=== PATIENT | female | born 1975 | race American Indian/Alaskan Native ===

== ENCOUNTER 2017-03-10 19:54 | Emergency (ER) | payer BC ==
[2017-03-10 20:10] VITALS: BP 135/73; RESP 17; TEMP 98.6; O2SAT 98
--- NOTE | 2017-03-10 20:31 | ED PDOC ---
Lower Extremity Pain/Injury Time Seen by Provider: 03/10/17 20:15 Chief Complaint (Nursing): Lower Extremity Problem/Injury Chief Complaint (Provider): leg pain History Per: Patient History/Exam Limitations: no limitations Onset/Duration Of Symptoms: Days (3) Current Symptoms Are (Timing): Still Present Additional History Per: Patient Additional Complaint(s): 41 y/o obese female presents for eval of bilateral leg pain (R>L) x 3 days. Patient states she was sitting down when she noted pain in the back and front of both ankles, worse with weight bearing. She notes last night a "burning" sensation from below her right knee to above her right ankle, which lasted a few minutes then resolved. Denies fever, known trauma, numbness/weakness lower extremities, recent travel. Patient on Depo shot. Past Medical History Reviewed: Historical Data, Nursing Documentation, Vital Signs Vital Signs: Last Vital Signs Temp 98.6 F 03/10/17 20:07 Pulse 100 H 03/10/17 20:07 Resp 17 03/10/17 20:07 BP 135/73 03/10/17 20:07 Pulse Ox 98 03/10/17 20:07 - Medical History PMH: No Chronic Diseases Denies: Asthma, Diabetes - Surgical History Surgical History: No Surg Hx - Family History Family History: States: Unknown Family Hx - Social History Current smoker - smoking cessation education provided: Yes SMOKER/PACKS PER DAY:: 1 Alcohol: Social Drugs: Denies - Home Medications Home Medications: Ambulatory Orders Medication Instructions Recorded Oxycodone HCl/Acetaminophen 1 tab PO Q6 #10 tab 05/24/15 [Percocet 325 mg-5 mg] oxyCODONE/Acetaminophen [Percocet 1 ea PO Q6H PRN #10 tab 10/16/15 5/325 mg Tab] Oseltamivir Phosphate [Tamiflu] 75 mg PO BID #10 capsule 03/12/16 Prednisone 50 mg PO DAILY #2 tablet 03/12/16 Naproxen [Naprosyn] 500 mg PO Q12 PRN #20 tablet 03/10/17 - Allergies Allergies/Adverse Reactions: Allergies Allergy/AdvReac Type Severity Reaction Status Date / Time No Known Allergies Allergy Verified 05/24/15 17:11 Review of Systems ROS Statement: Except As Marked, All Systems Reviewed And Found Negative Musculoskeletal: Positive for: Leg Pain Physical Exam - Reviewed Nursing Documentation Reviewed: Yes Vital Signs Reviewed: Yes - Physical Exam Appears: Positive for: Well, Non-toxic, No Acute Distress Pulses-Dorsalis Pedis (L): 2+ Pulses-Dorsalis Pedis (R): 2+ Pulses-Post. Tibialis (L): 2+ Pulses-Post. Tibialis (R): 2+ Extremity: Positive for: Normal ROM (FROM: tenderness posterior ankle b/l with active extension; tenderness anterior/superior ankle b/l with active flexion. ) , Tenderness (posterior ankle just proximal to calcaneous b/l, anterior/ superior ankle b/l), Capillary Refill, Swelling (mild RLE). Negative for: Calf Tenderness (+ Chloe's b/l), Deformity Neurologic/Psych: Positive for: Alert, Oriented. Negative for: Motor/Sensory Deficits - ECG O2 Sat by Pulse Oximetry: 98 - Other Rad xray ankles X-Ray: Viewed By Me X-Ray Interpretation: no acute findings - Progress ED Course And Treament: xray's, venous duplex b/l LE, ibuprofen PO CLINICAL HISTORY: 41 years old, female; Pain; Leg, lower; Bilateral; Additional info: Leg pain TECHNIQUE: Real-time ultrasound scan of the veins of the bilateral lower extremities with color Doppler flow, spectral waveform analysis and compression. EXAM DATE/TIME: 03/10/2017 8:27 PM COMPARISON: There are no prior studies for comparison. FINDINGS: Right deep veins: Common femoral, superficial femoral, popliteal and posterior tibial veins were evaluated. All veins examined are compressible. There are no intraluminal filling defects. There is expected blood flow on Doppler imaging. There is change in waveform with augmentation. Left deep veins: Common femoral, superficial femoral, popliteal and posterior tibial veins were evaluated. All veins examined are compressible. There are no intraluminal filling defects. There is expected blood flow on Doppler imaging. There is change in waveform with augmentation. IMPRESSION:IMPRESSION: No deep venous thrombosis in the visualized vascular segments of the lower extremities Patient educated on findings, right ankle wrapped in CHANO compression. ADvised RICE. Rx Naproxen given. Follow up podiatry. Return to ED for worsening/concerning symptoms. Disposition - Clinical Impression Clinical Impression: Ankle pain, Tendonitis - Patient ED Disposition Is Patient to be Admitted: No Counseled Patient/Family Regarding: Studies Performed, Diagnosis, Need For Followup, Rx Given - Disposition Referrals: Raul Long DPM [Staff Provider] - Disposition: Routine/Home Disposition Time: 22:38 Condition: IMPROVED Prescriptions: Naproxen [Naprosyn] 500 mg PO Q12 PRN #20 tablet PRN Reason: Pain, Moderate (4-7) Instructions: Achilles Tendinitis (ED), RICE Therapy (ED), Arthralgia (ED)
--- NOTE | 2017-03-10 22:18 | US ---
EXAM: US Duplex Bilateral Lower Extremity Veins CLINICAL HISTORY: 41 years old, female; Pain; Leg, lower; Bilateral; Additional info: Leg pain TECHNIQUE: Real-time ultrasound scan of the veins of the bilateral lower extremities with color Doppler flow, spectral waveform analysis and compression. EXAM DATE/TIME: 03/10/2017 8:27 PM COMPARISON: There are no prior studies for comparison. FINDINGS: Right deep veins: Common femoral, superficial femoral, popliteal and posterior tibial veins were evaluated. All veins examined are compressible. There are no intraluminal filling defects. There is expected blood flow on Doppler imaging. There is change in waveform with augmentation. Left deep veins: Common femoral, superficial femoral, popliteal and posterior tibial veins were evaluated. All veins examined are compressible. There are no intraluminal filling defects. There is expected blood flow on Doppler imaging. There is change in waveform with augmentation. IMPRESSION: No deep venous thrombosis in the visualized vascular segments of the lower extremities
[2017-03-10 22:46] VITALS: PULSE 75
--- NOTE | 2017-03-11 13:55 | RAD ---
PROCEDURE: Bilateral ankles HISTORY: atraumatic ant/post ankle pain COMPARISON: None TECHNIQUE: Standard protocol for this study/examination. FINDINGS: No significant/acute osseous, articular or soft tissue abnormalities. IMPRESSION: No acute findings related to/accounting for the clinical presentation.
== END 2017-03-10 23:09 | disposition home or self-care (01) ==
LOC: H.ER 19:54
DX: M25.571 Pain in right ankle and joints of right foot (principal); M25.572 Pain in left ankle and joints of left foot; M79.604 Pain in right leg; M77.9 Enthesopathy, unspecified

== ENCOUNTER 2018-04-01 09:29 | Emergency (ER) | payer SELFPAY ==
[2018-04-01 09:40] VITALS: BMI 46.5
[2018-04-01 09:42] VITALS: RESP 16; TEMP 98.2
--- NOTE | 2018-04-01 10:16 | RAD ---
HISTORY: LUQ / atraumatic rib pain COMPARISON: Chest radiograph dated 03/12/2016 TECHNIQUE: Chest PA and lateral FINDINGS: LUNGS: No active pulmonary disease. PLEURA: No significant pleural effusion identified. No pneumothorax apparent. CARDIOVASCULAR: Normal. OSSEOUS STRUCTURES: No significant abnormalities. VISUALIZED UPPER ABDOMEN: Normal. OTHER FINDINGS: None. IMPRESSION: No active disease.
--- NOTE | 2018-04-01 10:30 | ED PDOC ---
HPI: Abdomen Time Seen by Provider: 04/01/18 09:52 Chief Complaint (Nursing): Abdominal Pain Chief Complaint (Provider): L rib/ abdominal pain History Per: Patient History/Exam Limitations: no limitations Onset/Duration Of Symptoms: Gradual (about a month) Location Of Pain/Discomfort: LLQ Quality Of Discomfort: Sharp Associated Symptoms: denies: Fever, Chills, Nausea, Vomiting, Diarrhea, Loss Of Appetite, Back Pain, Chest Pain, Constipation, Urinary Symptoms Exacerbating Factors: Upright Position Alleviating Factors: Other (sitting down) Last Bowel Movement: Today Additional Complaint(s): 42yo female c/o left upper abd pain and rib pain, states she fees a "lump" in area when she stands up, but unsure if its just her adipose tissue. Denies cough , SOB, chest pain, dizziness, rash, syncope or trauma/falls. Past Medical History Reviewed: Historical Data, Nursing Documentation, Vital Signs Vital Signs: Last Vital Signs Temp 98.2 F 04/01/18 09:40 Pulse 81 04/01/18 12:30 Resp 16 04/01/18 12:30 BP 135/79 04/01/18 12:30 Pulse Ox 98 04/01/18 12:30 - Medical History PMH: No Chronic Diseases Denies: Asthma, Diabetes - Surgical History Surgical History: No Surg Hx - Family History Family History: States: Unknown Family Hx - Living Arrangements Living Arrangements: With Family - Home Medications Home Medications: Ambulatory Orders Medication Instructions Recorded Ibuprofen [Motrin Tab] 600 mg PO Q6 PRN #15 tab 04/01/18 - Allergies Allergies/Adverse Reactions: Allergies Allergy/AdvReac Type Severity Reaction Status Date / Time No Known Allergies Allergy Verified 05/24/15 17:11 Review of Systems Constitutional: Negative for: Fever, Chills Cardiovascular: Negative for: Chest Pain Respiratory: Negative for: Cough, Shortness of Breath Gastrointestinal: Positive for: Abdominal Pain. Negative for: Nausea Genitourinary Female: Negative for: Dysuria Musculoskeletal: Negative for: Neck Pain, Leg Pain Skin: Negative for: Rash, Lesions Neurological: Negative for: Weakness, Numbness Psych: Negative for: Anxiety Physical Exam - Reviewed Nursing Documentation Reviewed: Yes Vital Signs Reviewed: Yes - Physical Exam Appears: Positive for: Well, Non-toxic, No Acute Distress Head Exam: Positive for: ATRAUMATIC, NORMAL INSPECTION, NORMOCEPHALIC Skin: Positive for: Normal Color, Warm. Negative for: Rash (tattoos to L flank no rash nontender no palpable nodule or mass on seated or standing exam) Eye Exam: Positive for: EOMI, Normal appearance, PERRL ENT: Positive for: Normal ENT Inspection Neck: Positive for: Normal, Painless ROM Cardiovascular/Chest: Positive for: Regular Rate, Rhythm Respiratory: Positive for: CNT, Normal Breath Sounds Gastrointestinal/Abdominal: Positive for: Normal Exam, Soft Back: Positive for: Normal Inspection Extremity: Positive for: Normal ROM. Negative for: Swelling Neurologic/Psych: Positive for: Alert, Oriented. Negative for: Motor/Sensory Deficits - ECG O2 Sat by Pulse Oximetry: 99 Medical Decision Making Medical Decision Making: CXR and US abdomen LUQ ordered r/o splenic abnormality or atypical pneumonia, Pneumothorax, rib lesion or other US and CXR reports reviewed Results explained Needs further testing as outpatient for definitive diagnosis. Disposition - Clinical Impression Clinical Impression: Abdominal pain - Patient ED Disposition Is Patient to be Admitted: No Counseled Patient/Family Regarding: Studies Performed, Diagnosis, Need For Followup, Rx Given - Disposition Disposition: Routine/Home Disposition Time: 12:20 Condition: STABLE Additional Instructions: See your doctor for further testing. Return to ER for any worse or new symptoms. Prescriptions: Ibuprofen [Motrin Tab] 600 mg PO Q6 PRN #15 tab PRN Reason: Pain, Moderate (4-7) Instructions: Acute Abdomen (Belly Pain), Adult (DC) Forms: [employer] (Rwandan)
--- NOTE | 2018-04-01 12:01 | US ---
HISTORY: LUQ pain, L flank; eval spleen and L kidney COMPARISON: None. TECHNIQUE: Sonographic evaluation of the spleen and left kidney. FINDINGS: LEFT KIDNEY: Measures 11.3 x 5.4 x 5.0cm. Normal echogenicity. No calculus, mass, or hydronephrosis. SPLEEN: Normal in size and contour. No mass. OTHER FINDINGS: None. IMPRESSION: Unremarkable ultrasound of the spleen and left kidney.
[2018-04-01 13:02] VITALS: BP 135/79; PULSE 81
[2018-04-02 10:54] VITALS: O2SAT 99
== END 2018-04-01 13:02 | disposition home or self-care (01) ==
LOC: H.ER 09:29
DX: R10.32 Left lower quadrant pain (principal)

== ENCOUNTER 2018-12-13 09:11 | Emergency (ER) | payer BC ==
[2018-12-13 09:12] VITALS: BMI 46.5
[2018-12-13] MEDS ORDERED: Alum-Mag Hydrox-Simethicone Susp (30 mL) PO ONE (10:51)
[2018-12-13] MEDS ORDERED: Alum-Mag Hydrox-Simethicone Susp (30 mL) ONE (11:11)
--- NOTE | 2018-12-13 11:31 | CARD ---
APPROVED REPORT Date of service: 12/13/2018 EKG Measurement Heart [id number] <Conclusion> Normal sinus rhythm Normal ECG
--- NOTE | 2018-12-13 11:31 | ED PDOC ---
HPI: Abdomen Time Seen by Provider: 12/13/18 10:25 Chief Complaint (Nursing): Abdominal Pain History Per: Patient Additional Complaint(s): Pt. states for the past 2 months she's had intermittent LUQ radiating to the epigastric area. Reports pain in the epigastrum has progressively worsened prompting ED visit today. Also states last month she had 1 episode of hardened stool. States she used a suppository and shortly after developed dark stools for 1 day and has since resolved. Last BM was this morning and was normal and brown in color. Has been taking Zantac without relief. Also reports feeling nauseous and has been wretching but not vomitus produced. Denies chest pain, SOB, hematemesis, fever, chills, cough, palpitations, hematochezia, rectal pain. Of note, pt. states 2 weeks ago she had a colonoscopy done which was normal. States she gets a colonscopy regularly as her mother had colon CA at a young age. Pt. does not remember her GI's name. Past Medical History Reviewed: Historical Data, Nursing Documentation, Vital Signs Vital Signs: Last Vital Signs Temp 97.7 F 12/13/18 09:18 Pulse 106 H 12/13/18 09:18 Resp 17 12/13/18 09:18 BP 120/83 12/13/18 09:18 Pulse Ox 99 12/13/18 09:18 - Medical History PMH: Denies: Asthma, Diabetes - Surgical History Surgical History: No Surg Hx - Family History Family History: States: No Known Family Hx - Home Medications Home Medications: Ambulatory Orders Medication Instructions Recorded RX: Ibuprofen [Motrin Tab] 600 mg PO Q6 PRN #15 tab 04/01/18 Famotidine [Pepcid] 40 mg PO DAILY PRN #14 tab 12/13/18 - Allergies Allergies/Adverse Reactions: Allergies Allergy/AdvReac Type Severity Reaction Status Date / Time No Known Allergies Allergy Verified 12/13/18 09:21 Review of Systems ROS Statement: Except As Marked, All Systems Reviewed And Found Negative Gastrointestinal: Positive for: Nausea, Vomiting, Abdominal Pain Physical Exam - Physical Exam Appears: Positive for: Well, Non-toxic, No Acute Distress Skin: Positive for: Normal Color, Warm. Negative for: Rash Eye Exam: Positive for: Normal appearance. Negative for: Scleral icterus Neck: Positive for: Normal, Painless ROM Cardiovascular/Chest: Positive for: Regular Rate, Rhythm Respiratory: Positive for: Normal Breath Sounds. Negative for: Respiratory Distress Gastrointestinal/Abdominal: Positive for: Normal Exam, Bowel Sounds, Soft. Negative for: Tenderness, Distended Back: Positive for: Normal Inspection. Negative for: L CVA Tenderness, R CVA Tenderness Neurologic/Psych: Positive for: Alert, Oriented (x3). Negative for: Aphasia, Facial Droop - Laboratory Results Result Diagrams: 12/13/18 11:06 12/13/18 11:06 - ECG ECG: Positive for: Interpreted By Me ECG Rhythm: Positive for: Sinus Rhythm. Negative for: ST/T Changes Rate: 80 O2 Sat by Pulse Oximetry: 99 - Progress ED Course And Treament: Labs, Pepcid 20mg IV, maalox 30ml PO, viscous lidocaine 15ml PO ordered. 1211 On re-evaluation, pt. reports feeling much better. Pain still present but has improved. WBC 15.2 VBG, CT abd/pelvis w/ IV contrast ordered. 1400 Reports pain has not returned. Currently asymptomatic. Pt. informed of all results. Advised to f/u with PMD or GI for further evaluation but is to return to ED immediately if symptoms worsen. Pt. agrees with plan and care. All questions answered. Disposition - Clinical Impression Clinical Impression: Abdominal pain in female, Dyspepsia - Patient ED Disposition Is Patient to be Admitted: No - Disposition Referrals: [facility] [Outside] Disposition: Routine/Home Disposition Time: 14:08 Condition: IMPROVED Additional Instructions: FOLLOW UP WITH [facility] FOR FURTHER EVALUATION RETURN TO ED IMMEDIATELY IF SYMPTOMS WORSEN TONI [place], thank you for letting us take care of you today. Your provider was Serena Slade MD and you were treated for ABD PAIN. The emergency medical care you received today was directed at your acute symptoms. If you were prescribed any medication, please fill it and take as directed. It may take several days for your symptoms to resolve. Return to the Emergency Department if your symptoms worsen, do not improve, or if you have any other problems. Please contact your doctor or call one of the physicians/clinics you have been referred to that are listed on the Patient Visit Information form that is included in your discharge packet. Bring any paperwork you were given at discharge with you along with any medications you are taking to your follow up visit. Our treatment cannot replace ongoing medical care by a primary care provider outside of the emergency department. Thank you for allowing the [facility] team to be part of your care today. If you had an X-Ray or CT scan: A Radiologist will review the ED reading if any change in treatment is needed we will contact you. If you had a blood, urine, or wound culture: It will take several days for the results, if any change in treatment is needed we will contact you. If you had an STI test: It will take 48 hours for the results. Please call after 1 week if you have not heard back. Prescriptions: Famotidine [Pepcid] 40 mg PO DAILY PRN #14 tab PRN Reason: Dyspepsia Instructions: Dyspepsia (DC) Forms: [employer] (German) Print Language: ITALIAN
[2018-12-13 11:42] LABS: SQUAMOUS EPITHIAL 1 /hpf (0-5); URINE BILIRUBIN NEGATIVE (NEGATIVE); URINE BLOOD SMALL (NEGATIVE); URINE CLARITY SLIGHTY-CLOUDY (Clear); URINE COLOR YELLOW (YELLOW); URINE GLUCOSE (UA) NEG (NEGATIVE); URINE LEUKOCYTE ESTERASE NEG Leu/uL (Negative); URINE PROTEIN 30 mg/dL (NEGATIVE)
[2018-12-13 11:49] LABS: BASO # 0.1 K/uL (0.0-0.2); BASO % 0.9 % (0.0-2.0); EOS # 0.2 K/uL (0.0-0.7); EOS % 1.4 % (0.0-4.0); HEMOGLOBIN 12.3 g/dL (12.0-16.0); LYMPH % 26.6 % (20.0-40.0); MEAN CELL VOLUME 83.4 fl (81.0-99.0); MEAN CORPUSCULAR HEMOGLOBIN 28.3 pg (27.0-31.0); MONO # 0.9 K/uL (0.0-0.8); MONO % 5.8 % (0.0-10.0); NEUT # 9.9 K/uL (1.8-7.0); NEUT % 65.3 % (50.0-75.0); NRBC % 0.1 % (0.0-0.0); RBC 4.33 Mil/uL (3.80-5.20); RED CELL DISTRIBUTION WIDTH 14.9 % (11.5-14.5); WHITE BLOOD COUNT 15.2 K/uL (4.8-10.8)
[2018-12-13 11:56] LABS: ALB/GLOB RATIO 1.1 (1.0-2.1); ALBUMIN 3.9 g/dL (3.5-5.0); ALT/SGPT 19 U/L (9-52); AST/SGOT 22 U/L (14-36); BLOOD UREA NITROGEN 15 mg/dl (7-17); CALCIUM 9.6 mg/dL (8.4-10.2); GFR NON-AFRICAN AMERICAN 55; LIPASE 109 U/L (23-300)
[2018-12-13 13:10] LABS: VENOUS BLOOD GAS BASE EXCESS 0.6 mmol/L (0.0-2.0); VENOUS BLOOD GAS PCO2 47 mmHg (40-60); VENOUS BLOOD GAS PO2 28 mm/Hg (30-55); VENOUS BLOOD PH 7.36 (7.32-7.43)
[2018-12-13] MEDS ORDERED: Iohexol 300 100 ML IJ ONE (13:14)
[2018-12-13] MEDS ORDERED: Sodium Chloride 0.9% 50 ML IV ONE (13:14)
--- NOTE | 2018-12-13 13:50 | CT ---
Date of service: 12/13/2018 PROCEDURE: CT Abdomen and Pelvis with contrast HISTORY: epigastric, LUQ pain COMPARISON: Limited abdomen ultrasound 04/01/2018. TECHNIQUE: Following the intravenous administration of iodinated contrast material, a CT examination of the abdomen and pelvis was performed from the domes of the diaphragms to the symphysis pubis with reformatted datasets provided in axial, sagittal and coronal planes. Oral contrast was not administered as per referring physician request. Contrast dose: Omnipaque 300, 100 cc Radiation dose: Total exam DLP = 858.88 mGy-cm. This CT exam was performed using one or more of the following dose reduction techniques: Automated exposure control, adjustment of the mA and/or kV according to patient size, and/or use of iterative reconstruction technique. FINDINGS: LOWER THORAX: Small hiatal hernia encountered with lung bases otherwise unremarkable. LIVER: Two tiny lucencies are seen at the left lobe liver under 1 cm size too small to characterize with remainder liver unremarkable liver appears overall upper limits normal size. GALLBLADDER AND BILE DUCTS: Unremarkable. PANCREAS: Unremarkable. No gross lesion or ductal dilatation. SPLEEN: Unremarkable. ADRENALS: Unremarkable. No mass. KIDNEYS AND URETERS: Unremarkable. No hydronephrosis. No solid mass. VASCULATURE: Unremarkable. No aortic aneurysm. No aortic atherosclerotic calcification or mural plaque present. BOWEL: Unremarkable. No obstruction. No gross mural thickening. APPENDIX: Normal appendix. PERITONEUM: Unremarkable. No free fluid. No free air. LYMPH NODES: Shotty upper lesser sac lymph nodes are identified which are grossly enlarged. No gross lymphadenopathy identified in the abdomen or pelvis. Numerous shotty bilateral inguinal lymph nodes also identified. BLADDER: Unremarkable. REPRODUCTIVE: Heterogeneous enhancement within a bulky uterus may indicate uterine fibroids. Ultrasonography may be helpful for added characterization. No suspicious adnexal findings. BONES: No acute fracture. OTHER FINDINGS: None. IMPRESSION: 1. Two tiny lucencies seen the liver which is too small to characterize with liver otherwise unremarkable. Contracted gallbladder. 2. No bowel obstruction or obstructive uropathy bilaterally. Stomach is collapsed not well evaluated. Lack oral contrast limits evaluation the gastrointestinal tract. 3. Shotty lesser sac lymph nodes are identified above the pancreas without gross pancreatic mass appreciable. Shotty bilateral inguinal lymph nodes appear relatively numerous bilaterally. 4. Probable fibroid uterus. Ultrasonography can confirm.
[2018-12-13 14:23] VITALS: BP 115/60; RESP 18; TEMP 99
[2018-12-19 23:46] VITALS: PULSE 80; O2SAT 99
== END 2018-12-13 14:45 | disposition home or self-care (01) ==
LOC: H.ER 09:11
DX: R10.9 Unspecified abdominal pain (principal); R10.13 Epigastric pain
CPT/HCPCS: 74177; 80053; 81003; 81025; 82803; 83690; 85025; 93005; 96374; 96375; 99285; J2405; Q9967